=== PATIENT | female | born 1985 | race Caucasian/White ===

== ENCOUNTER 2019-03-15 14:34 | Emergency (ER) | payer SELFPAY ==
--- NOTE | 2019-03-15 14:44 | ERPHSYRPT ---
- History of Present Illness Source: patient Exam Limitations: no limitations Method of Injury: fell Occurred: yesterday Quality: aching, sharpness, stabbing Severity of Pain-Max: mild Severity of Pain-Current: mild Lower Extremities Pain: hip: right, leg: right, thigh: right Modifying Factors: Improves With: movement (worsens) Associated Symptoms: none (time as fall), popping sensation Hx Tetanus, Diphtheria Vaccination/Date Given: No Hx Influenza Vaccination/Date Given: No Hx Pneumococcal Vaccination/Date Given: No <ETHAN FALCON - Last Filed: 03/15/19 16:58> <ISABEL LANDERS - Last Filed: 03/15/19 19:06> - History of Present Illness Time Seen by Provider: 03/15/19 14:44 Physician History: 33 y/o white female fell while cleaning out garbage can at work yesterday. venous doppler negative. no xrays taken. pt has persistent pain right lower leg (ETHAN FALCON) Allergies/Adverse Reactions: No Known Drug Allergies Allergy (Unverified 03/15/19 14:59) Home Medications: Methocarbamol 500 mg PO DAILY 03/15/19 [History] Naproxen 375 mg PO DAILY 03/15/19 [History] Tramadol HCl 50 mg [Ultram 50 mg] 50 mg PO DAILY 03/15/19 [History] - Review of Systems Constitutional: No Symptoms Eyes: No Symptoms Ears, Nose, & Throat: No Symptoms Respiratory: No Symptoms Cardiac: No Symptoms Abdominal/Gastrointestinal: No Symptoms Genitourinary Symptoms: No Symptoms Musculoskeletal: Injury Skin: No Symptoms Neurological: No Symptoms Psychological: No Symptoms Endocrine: No Symptoms Hematologic/Lymphatic: No Symptoms Immunological/Allergic: No Symptoms All Other Systems: Reviewed and Negative <ETHAN FALCON - Last Filed: 03/15/19 16:58> - Past Medical History Pertinent Past Medical History: No Neurological History: No Pertinent History ENT History: No Pertinent History Cardiac History: No Pertinent History Respiratory History: No Pertinent History Endocrine Medical History: No Pertinent History Musculoskeletal History: No Pertinent History GI Medical History: No Pertinent History History: No Pertinent History Psycho-Social History: No Pertinent History Female Reproductive Disorders: No Pertinent History - Past Surgical History Past Surgical History: Yes Neuro Surgical History: No Pertinent History Cardiac: No Pertinent History Respiratory: No Pertinent History Gastrointestinal: No Pertinent History Genitourinary: No Pertinent History Musculoskeletal: No Pertinent History Female Surgical History: Tubal Ligation - Social History Smoking Status: Never smoker Exposure to second hand smoke: No Alcohol Use: Socially Drug Use: none Patient Lives Alone: No Significant Family History: no pertinent family hx <ETHAN FALCON - Last Filed: 03/15/19 16:58> - Physical Exam General Appearance: no apparent distress, alert, anxiety Eyes, Ears, Nose, Throat Exam: normal ENT inspection, moist mucous membranes Neck Exam: normal inspection, non-tender, supple, full range of motion Cardiovascular/Respiratory Exam: chest non-tender Gastrointestinal/Abdominal Exam: non-tender Back Exam: normal inspection, normal range of motion, No CVA tenderness, No vertebral tenderness Hips Exam: right: normal inspection, normal range of motion, no evidence of injury, bone tenderness, soft tissue tenderness Legs Exam: right leg: non-tender, normal inspection, normal range of motion, no evidence of injury Knees Exam: right knee: non-tender, normal inspection, normal range of motion, no evidence of injury Ankle Exam: right ankle: non-tender, normal inspection, normal range of motion, no evidence of injury Foot Exam: right foot: non-tender, normal inspection, normal range of motion, no evidence of injury Neuro/Tendon Exam: normal sensation, normal motor functions, normal tendon functions, responds to pain Mental Status Exam: alert, oriented x 3, cooperative Skin Exam: normal color, warm, dry SpO2 Interpretation: normal O2 Delivery: Room Air <ETHAN FALCON - Last Filed: 03/15/19 16:58> - Nursing Vital Signs Nursing Vital Signs: Initial Vital Signs Temperature 98.5 F 03/15/19 14:55 Pulse Rate 16 L 03/15/19 14:55 Respiratory Rate 18 03/15/19 14:55 Blood Pressure 123/71 03/15/19 14:55 O2 Sat by Pulse Oximetry 100 03/15/19 14:55 Pain Scale Pain Intensity 6 - Course Nursing assessment & vital signs reviewed: Yes <ETHAN FALCON - Last Filed: 03/15/19 16:58> - Radiology Exams Right Hip X-ray Interpretation: Interpreted by me, Reviewed by me, Negative, No Fracture, Nml Alignment, Nml Soft Tissues <ISABEL LANDERS - Last Filed: 03/15/19 19:06> Ordered Tests: Active Orders 24 hr Category Date Time Status HIP UNI (2V) INCL PEL IF DONE Stat Exams 03/15/19 16:41 Taken <ETHAN FALCON - Last Filed: 03/15/19 16:58> <ISABEL LANDERS - Last Filed: 03/15/19 19:06> - Progress Progress Note: 03/15/19 17:02 transfer of ED care to dr. landers. i reviewed pending tests. he accepts pt for transfer. (ETHAN FALCON) 03/15/19 18:50 Re-evaluation of examination is consistent with an right inguinal strain of the adductor muscles and probable right hamstring strain. No neurologic or vascular deficits (LEESAISABEL DIANA) <ETHAN FALCON - Last Filed: 03/15/19 16:58> - Departure Departure Disposition: Home Critical Care Time: No <ISABEL LANDERS - Last Filed: 03/15/19 19:06> - Departure Clinical Impression: Strain of muscle of right groin region, Elevated blood pressure reading without diagnosis of hypertension Right hamstring muscle strain Qualifiers: Encounter type: initial encounter Qualified Code(s): S76.311A - Strain of muscle, fascia and tendon of the posterior muscle group at thigh level, right thigh, initial encounter Condition: Good Referrals: AMEYA DEAL, [Primary Care Provider] - Follow Up with PCP/3 days Instructions: Groin Strain (DC), Lower Extremity Muscle Strain (DC), Hamstring Muscle Strain (DC) Additional Instructions: your x-rays were read as negative by the emergency department physician. Follow up with your physician to discuss either physical therapy for her or potential MRI in the future. Return back to the emergency department immediately if any new weakness, loss of sensation, discoloration of the skin, overwhelming pain or any other concerning signs or symptoms that were not presentation return visit for immediate reevaluation in the emergency department. Prescriptions: Etodolac 400 mg [Lodine 400 mg] 400 mg PO BID PRN PRN #20 tablet PRN Reason: Pain
[2019-03-15 19:22] VITALS: BP 141/97; PULSE 96; O2SAT 98
--- NOTE | 2019-03-16 08:45 | XRAY ---
Indication: Pain. No known injury. Comparison: None 2 views of the right hip demonstrates a few pelvic phleboliths. No other bony, articular, or soft tissue abnormalities.
== END 2019-03-15 19:23 | disposition home or self-care (01) ==
LOC: ED 14:34
DX: S76.311A Strain of muscle, fascia and tendon of the posterior muscle group at thigh level, right thigh, initial encounter (principal); R03.0 Elevated blood-pressure reading, without diagnosis of hypertension; W19.XXXA Unspecified fall, initial encounter; Y93.H9 Activity, other involving exterior property and land maintenance, building and construction; Y92.29 Other specified public building as the place of occurrence of the external cause; M79.661 Pain in right lower leg
CPT/HCPCS: 73502; 99283